=== PATIENT | female | born 1970 | race Caucasian/White ===

== ENCOUNTER 2017-02-03 23:15 | Inpatient (IN) | payer SELFPAY ==
[~2017-02-03] VITALS: Ht 160 cm; Wt 82.7 kg
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
[2017-02-03 23:41] LABS: BASOPHIL # 0.1 K/uL (0.0-0.2); BASOPHIL % 0.8 %; EOSINOPHIL # 0.3 K/uL (0.0-0.5); EOSINOPHIL % 4.4 %; HEMATOCRIT 41.4 % (33.0-46.0); HEMOGLOBIN 13.6 g/dL (10.0-15.0); IMMATURE GRANULOCYTE % 0.4 %; LYMPHOCYTE # 2.6 K/uL (0.8-4.0); LYMPHOCYTE % 35.3 %; MCH 27.8 pg (27.0-34.0); MCHC 32.9 gm/dL (32.0-36.5); MCV 84.5 fl (83.0-98.0); MONOCYTE # 0.5 K/uL (0.0-1.0); MONOCYTE % 7.3 %; MPV 9.4 fl (9.4-12.4); NEUTROPHIL # (ANC) 3.8 K/uL (1.8-7.8); NEUTROPHIL % 51.8 %; NRBC % 0 /100WBC (0-0.00); PLATELET COUNT 340 K/uL (150-450); RDW-CV 13.6 % (11.9-14.6); WBC 7.3 K/uL (4.0-11.0)
[2017-02-03 23:52] LABS: PROTIME 10.6 SECONDS (9.6-11.1); PTT 29 SECONDS (25-32)
[2017-02-03 23:54] LABS: ALBUMIN 4.1 gm/dL (3.5-5.0); ANION GAP 10.7 (10.0-19.0); BLOOD UREA NITROGEN 17 mg/dL (6-24); CALCIUM 8.2 mg/dL (8.5-10.5); CHLORIDE 107 mMol/L (96-110); CO2 26 mMol/L (22-32); ESTIMATED GFR (MDRD EQUATION) 59; PHOSPHORUS 2.5 mg/dL (2.5-4.9); POTASSIUM 3.7 mMol/L (3.7-5.1); SODIUM 140 mMol/L (135-145)
[2017-02-04] MEDS ORDERED: PRISTIQ ER100 MG PO (03:51)
[2017-02-04] MEDS ORDERED: BUSPAR PO (03:53)
[2017-02-04] MEDS ORDERED: CLONAZEPAM1 MG PO (03:55)
[2017-02-04] MEDS ORDERED: MINIPRESS1 MG PO (03:55)
[2017-02-04] MEDS ORDERED: SEROQUEL100 MG PO (03:57)
[2017-02-04 04:47] LABS: BILIRUBIN URINE NEGATIVE (NEGATIVE); BLOOD URINE 10 /UL (NEGATIVE); GLUCOSE URINE NEGATIVE (NEGATIVE); KETONE URINE 15 mg/dL (NEGATIVE); LEUKOCYTES URINE 100 /UL (NEGATIVE); NITRITE URINE NEGATIVE (NEGATIVE); PROTEIN URINE NEGATIVE (NEGATIVE); UROBILINOGEN URINE NORMAL (NORMAL)
[2017-02-04 04:49] LABS: COLOR URINE YELLOW (YELLOW); TURBIDITY URINE CLEAR (CLEAR)
[2017-02-04 05:16] LABS: WBC URINE 50-100 #/HPF (NEGATIVE)
[2017-02-04 05:17] LABS: BACTERIA URINE NEGATIVE (NEGATIVE); EPITHELIAL URINE RARE #/HPF (NEGATIVE)
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
[2017-02-04] MEDS ORDERED: ADVIL200 MG PO (09:14)
[2017-02-04] MEDS ORDERED: MOBIC15 MG PO (09:14)
[2017-02-04] MEDS ORDERED: BREO ELLIPTA 11 EACH INH (09:14)
[2017-02-04] MEDS ORDERED: LEVOCETIRIZINE D5 MG PO (09:15)
[2017-02-04] MEDS ORDERED: VERAPAMIL ER180 M1 PO (09:15)
[2017-02-04] MEDS ORDERED: THERA-VITE W/ B1 TAB PO (09:16)
[2017-02-04] MEDS ORDERED: MAXALT10 MG PO (09:16)
[2017-02-04] MEDS ORDERED: WELLBUTRIN SR150 MG PO (09:21)
--- NOTE | 2017-02-04 19:11 | NUR ---
Significant Event: A/Ox3. SBP- 140-160s. P-70-80s. Afebrile. Room air. R) AC infusing D5 1/2 NS @ 125ml/hr. Patient had MRI in am of c spine no acute fingings. Patients neck collar was removed. R) wrist brace was also discontinued aper ortho and she was told there was no fracture. Patient had norco 10-325mg x3 and dilaudid IVP x2 for pain in head and neck. Ice applied to head. Patient is cooperative with cares.
[2017-02-05 04:20] LABS: BASOPHIL % 0.4 %; EOSINOPHIL # 0.1 K/uL (0.0-0.5); EOSINOPHIL % 2.1 %; HEMATOCRIT 39.5 % (33.0-46.0); HEMOGLOBIN 12.8 g/dL (10.0-15.0); IMMATURE GRANULOCYTE % 0.3 %; LYMPHOCYTE # 1.2 K/uL (0.8-4.0); LYMPHOCYTE % 17.9 %; MCH 27.9 pg (27.0-34.0); MCHC 32.4 gm/dL (32.0-36.5); MCV 86.2 fl (83.0-98.0); MONOCYTE # 0.5 K/uL (0.0-1.0); MONOCYTE % 8.1 %; MPV 9.4 fl (9.4-12.4); NEUTROPHIL # (ANC) 4.8 K/uL (1.8-7.8); NEUTROPHIL % 71.2 %; NRBC % 0 /100WBC (0-0.00); PLATELET COUNT 304 K/uL (150-450); RBC 4.58 M/uL (3.50-5.50); RDW-CV 13.9 % (11.9-14.6); WBC 6.7 K/uL (4.0-11.0)
[2017-02-05 04:30] LABS: PROTIME 10.5 SECONDS (9.6-11.1); PTT 29 SECONDS (25-32)
[2017-02-05 04:42] LABS: ALBUMIN 3.3 gm/dL (3.5-5.0); ALK PHOS 62 IU/L (33-138); ALT 13 IU/L (12-78); AST 9 IU/L (10-40); CALCIUM 7.5 mg/dL (8.5-10.5); CHLORIDE 109 mMol/L (96-110); CO2 25 mMol/L (22-32); CREATININE 0.7 mg/dL (0.5-1.1); ESTIMATED GFR (MDRD EQUATION) > 60; SODIUM 141 mMol/L (135-145); TOTAL BILIRUBIN 0.4 mg/dL (0.0-1.5); TOTAL PROTEIN 6.5 g/dL (6.0-8.4)
[2017-02-05 04:47] LABS: BLOOD UREA NITROGEN 7 mg/dL (6-24)
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
--- NOTE | 2017-02-05 13:04 | NUR ---
Patient transferred to lower level of care. Has been A&Ox3, VSS. Lung sounds clear/dim. CT of head this AM negative. Up 1 assist, C/O dizziness, but does well ambulating to chair. Zofran given at 0900 for nausea. Dilaudid given x 1 at 0745, and Yancey 1 tab at 1045 for C/O KEL[place] pain, relief noted. IVF at 125 ml/hr. To transfer to [facility].
--- NOTE | 2017-02-05 13:39 | NUR ---
Introduced self and care management services to patient. Lives in [place] by herself. Plans on going home on discharge. Slot Supervisor will follow and assist with dc planning as needs identified.
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
[2017-02-06 06:41] LABS: BASOPHIL % 0.4 %; EOSINOPHIL # 0.1 K/uL (0.0-0.5); EOSINOPHIL % 1.7 %; HEMATOCRIT 38.4 % (33.0-46.0); HEMOGLOBIN 12.5 g/dL (10.0-15.0); IMMATURE GRANULOCYTE % 0.5 %; LYMPHOCYTE # 1.4 K/uL (0.8-4.0); LYMPHOCYTE % 19.1 %; MCH 27.9 pg (27.0-34.0); MCHC 32.6 gm/dL (32.0-36.5); MCV 85.7 fl (83.0-98.0); MONOCYTE # 0.5 K/uL (0.0-1.0); MONOCYTE % 6.3 %; MPV 9.3 fl (9.4-12.4); NEUTROPHIL # (ANC) 5.4 K/uL (1.8-7.8); NRBC % 0 /100WBC (0-0.00); PLATELET COUNT 286 K/uL (150-450); RBC 4.48 M/uL (3.50-5.50); RDW-CV 13.7 % (11.9-14.6); WBC 7.5 K/uL (4.0-11.0)
[2017-02-06 06:58] LABS: ALBUMIN 3.3 gm/dL (3.5-5.0); ALK PHOS 53 IU/L (33-138); ALT 14 IU/L (12-78); ANION GAP 10.7 (10.0-19.0); AST 7 IU/L (10-40); BLOOD UREA NITROGEN 10 mg/dL (6-24); CALCIUM 7.8 mg/dL (8.5-10.5); CHLORIDE 110 mMol/L (96-110); CO2 23 mMol/L (22-32); CREATININE 0.7 mg/dL (0.5-1.1); ESTIMATED GFR (MDRD EQUATION) > 60; POTASSIUM 3.7 mMol/L (3.7-5.1); SODIUM 140 mMol/L (135-145); TOTAL BILIRUBIN 0.4 mg/dL (0.0-1.5); TOTAL PROTEIN 6.2 g/dL (6.0-8.4)
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
--- NOTE | 2017-02-06 16:12 | NUR ---
Attempted to see pt 2 times this afternoon. Pt was sleeping the first attempt and wished not to be woken per nursing. 2nd attempt pt refused and did not want to work with PT. Will attempt again tomorrow Nicole White, PT
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
--- NOTE | 2017-02-07 14:46 | NUR ---
Called and left a message for insurance classification case manager Janae #[phone] with [employer]. Needed to know discharge plans and if patient would need anything? Called Lisa charge nurse - patient still has no needs and should go home tomorrow. Left that message on Janae's phone with my call back number.
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
--- NOTE | 2017-02-08 03:49 | NUR ---
Significant Event: A/O X 3. WEARS HARD NECK BRACE FOR COMFORT. HAS NECK PAIN RATED AROUND 8. HAD NORCO TAB ONE AT 2125, PAIN RATE 7, LATER AT 6. NORCO ONE TAB AT 0024 PAIN RATE 8, LATER SLEEPING. DENIED NAUSEA, SLIGHT DIZZY WHEN IST GOTTEN UP TO BR LATER IN SHIFT, BUT BETTER NOW. TAKEN ALL OF EVENING MEAL, EATING JELLO, CRACKERS. AMBULATED IN HALLS WITH ONE ASSIST, GAITBELT. DID WELL. VOIDS IN BR GOOD AMOUNTS. PASSING FLATUS, NO BM YET. ENCOURAGE TO DRINK MORE FLUIDS. IV SALINE LOCK INTACT. BILATERAL CALF PNEUMATICS ON. GOOD HAND GRASPS, MOVES ALL EXTREMITIES. POSSIBLE TO GO HOME TODAY. Follow up:
--- NOTE | 2017-02-08 09:55 | NUR ---
Spoke to significant other, Rasheed. Could not think of any discharge needs. Patient going to see if family from [place] can come and stay with her for awhile. 1310 Left a message for [place] test case developer Janae #[phone], patient to discharge Sunday, only needed a soft collar which nursing was ordering for her.
--- NOTE | 2017-02-08 15:43 | NUR ---
Significant Event: PT ALERT AND ORIENTED. UP IN THE ROOM AND HALLS. HARD COLLAR DC'D AND SOFT COLLAR APPLIED. NORCO FOR PAIN ABOUT EVERY 2 HOURS. PT WILL BE DISCHARGED TOMORROW. NO NAUSEA TODAY. EATING BETTER. FRIEND HERE TO VISIT TODAY. Follow up:
--- NOTE | 2017-02-09 04:11 | NUR ---
Patient alert and oriented x3, up adlib in room, able to do all cares for herself, does take pain meds frequenlty, has soft collar that she can wear PRN, has rested well tonight plans to discharge today
[2017-02-09] MEDS ORDERED: COLACE100 MG PO (09:48)
[2017-02-09] MEDS ORDERED: NORCO 5-325 TA1 EACH PO (09:53)
[2017-02-09] MEDS ORDERED: ZOFRAN4 MG PO (09:57)
== END 2017-02-09 12:03 | disposition disaster alternative care site (69) | DRG 89 ==
LOC: GACC 23:15 → GPCU 02-04 02:17 → G3N 02-04 02:17 → GPCU 02-04 02:17 → G3N 02-05 11:43
PROVIDERS: Emergency Medicine; ADMIT Surgery
DX: S06.0X9A Concussion with loss of consciousness of unspecified duration, initial encounter (principal); N39.0 Urinary tract infection, site not specified; I10 Essential (primary) hypertension; F32.9 Major depressive disorder, single episode, unspecified; F41.9 Anxiety disorder, unspecified; S62.001A Unspecified fracture of navicular [scaphoid] bone of right wrist, initial encounter for closed fracture; V89.2XXA Person injured in unspecified motor-vehicle accident, traffic, initial encounter; S16.1XXA Strain of muscle, fascia and tendon at neck level, initial encounter
CPT/HCPCS: C9113; G0480; J0696; J1170; J2405; J3480; J7040; J7050; Q9967